=== PATIENT | female | born 2000 | race Caucasian/White ===

== ENCOUNTER 2020-02-10 22:03 | Emergency (ER) | payer BC ==
[2020-02-10] MEDS ORDERED: HYDROmorphone 0.5 MG/0.5 ML Syringe IM ONE (22:44)
--- NOTE | 2020-02-10 22:57 | EDM.PDOC ---
ED HPI GENERAL MEDICAL PROBLEM - General Chief Complaint: Back Pain or Injury Stated Complaint: LOW BACK PAIN Time Seen by Provider: 02/10/20 22:30 Source of Information: Reports: Patient, Family, RN, RN Notes Reviewed History Limitations: Reports: No Limitations - History of Present Illness INITIAL COMMENTS - FREE TEXT/NARRATIVE: Patient with severe back pain predominantly on the right that started about 2 hours ago. She rates this at an 8 to a 10. She has had a similar pain in the past couple of months ago. She was not treated or seen for this condition. Tonight the pain is unbearable. She does not have any pain with urination, pelvic pain, urgency or frequency. Patient has experienced nausea due to the pain she has not vomited. She has taken 2 Tylenol for the pain and it has not helped. Onset: Today, Sudden Onset Date: 02/10/20 Onset Time: 20:15 Duration: Hour(s):, Getting Worse Location: Reports: Back (Low back) Quality: Reports: Sharp Severity: Severe Improves with: Reports: None Context: Reports: Other (Onset) Associated Symptoms: Reports: Diaphoresis, Nausea/Vomiting Treatments SOUND MIXER: Reports: Acetaminophen Lower Back Pain Score (Numeric/FACES): 10 - Related Data Allergies Allergy/AdvReac Type Severity Reaction Status Date / Time No Known Allergies Allergy Verified 02/10/20 22:17 Home Meds: Home Meds norgestimate-ethinyl estradioL [Zzq-Ie-Hlfwnvka Tablet] 1 tab PO DAILY 02/10/20 [History] Past Medical History - Past Surgical History Dermatological Surgical History: Reports: Plastic Surgical R econstruction/Repair, Skin Graft Social & Family History - Tobacco Use Smoking Status *Q: Never Smoker - Recreational Drug Use Recreational Drug Use: No ED ROS GENERAL - Review of Systems Review Of Systems: See Below Constitutional: Reports: No Symptoms HEENT: Reports: No Symptoms Respiratory: Denies: Shortness of Breath, Cough Cardiovascular: Denies: Chest Pain, Blood Pressure Problem, Lightheadedness, Palpitations Endocrine: Reports: No Symptoms GI/Abdominal: Reports: Nausea. Denies: Abdominal Pain, Constipation, Diarrhea, Difficulty Swallowing, Flatus, Vomiting : Reports: Pain (Back pain predominantly on the right side in the region of the kidney.) Musculoskeletal: Reports: Back Pain (Low back). Denies: Muscle Pain, Muscle Stiffness Neurological: Denies: Confusion, Dizziness, Headache, Numbness, Weakness Psychiatric: Reports: No Symptoms Hematologic/Lymphatic: Reports: No Symptoms Immunologic: Reports: No Symptoms ED EXAM,LOWER BACK PAIN/INJURY - Physical Exam Exam: See Below Exam Limited By: No Limitations General Appearance: Alert, WD/WN, No Apparent Distress Neck: Normal Inspection, Supple, Non-Tender, Full Range of Motion Respiratory/Chest: No Respiratory Distress, Lungs Clear, Normal Breath Sounds, No Accessory Muscle Use, Chest Non-Tender Cardiovascular: Normal Peripheral Pulses, Regular Rate, Rhythm, No Edema, No Gallop, No JVD, No Murmur, No Rub GI/Abdominal: Normal Bowel Sounds, Soft, Non-Tender, No Organomegaly, No Distention, No Abnormal Bruit, No Mass, Pelvis Stable. No: Guarding, Rebound, Tender, Hepatomegaly, Splenomegaly Back Exam: Normal Inspection, Full Range of Motion, CVA Tenderness (R) (He had tenderness greater on the right), CVA Tenderness (L). No: Muscle Spasm Extremities: Normal Inspection, Normal Range of Motion, Non-Tender, No Pedal Edema, Normal Capillary Refill Neurological: Alert, Normal Mood/Affect, Normal Dorsiflexion, CN II-XII Intact, Normal Plantar Flexion, Normal Gait, Normal Reflexes, No Motor/Sensory Deficits, Oriented x 3 Psychiatric: Normal Affect, Normal Mood Skin Exam: Warm, Dry, Intact, Normal Color, No Rash Lymphatic: No Adenopathy Course - Vital Signs Last Recorded V/S: Last Vital Signs Temp 36.1 C 02/10/20 22:18 Pulse 68 02/10/20 22:18 Resp 16 02/10/20 22:18 BP 155/92 H 02/10/20 22:18 Pulse Ox 100 02/10/20 22:18 - Orders/Labs/Meds Labs: Laboratory Tests 02/10/20 02/10/20 Range/Units 22:24 22:50 Urine Color Yellow (YELLOW) Urine Appearance Clear (CLEAR) Urine pH 7.0 (5.0-8.0) Ur Specific Stephens 1.020 (1.008-1.030) Urine Protein Negative (NEGATIVE) mg/dL Urine Glucose (UA) Negative (NEGATIVE) mg/dL Urine Ketones Negative (NEGATIVE) mg/dL Urine Occult Blood Trace-lysed H (NEGATIVE) Urine Nitrite Negative (NEGATIVE) Urine Bilirubin Negative (NEGATIVE) Urine Urobilinogen 0.2 (0.2-1.0) EU/dL Ur Leukocyte Esterase Negative (NEGATIVE) Urine RBC 0-5 (0-5) Urine WBC 0-5 (0-5) Ur Epithelial Cells Rare Amorphous Sediment Not seen Urine Bacteria Rare Urine Mucus Not seen Urine HCG, Qual Negative UA negative for infection question trauma secondary to occult blood. Meds: Medications Discontinued Medications Generic Name Dose Route Start Last Admin Trade Name Shawn PRN Reason Stop Dose Admin Ketorolac Tromethamine 60 mg 02/10/20 23:05 02/10/20 23:11 Toradol IM 02/10/20 23:06 60 mg ONETIME ONE Administration - Radiology Interpretation Free Text/Narrative:: CT preliminary read - no evidence of kidney stones will wait for radiologist read Per radiologist read CT scant abd pelvis - pt with moderate amount of stool may represent chronic constipation Appendix upper limits of normal in size, no thickening or surrounding inflammatory changes. Pt does have an punctate gallstone. - Re-Assessments/Exams Free Text/Narrative Re-Assessment/Exam: 02/11/20 00:03 Pt states tramadol injection helped the pain somewhat but she states she is still quite uncomfortable. Rating a pain at a 4-5 post injection. Pt was notified of her CT results. After lengthy discussion patient chose to go home and try a colonoscopy prep vs having an enema to evacuate the stool in her colon. Departure - Departure Time of Disposition: 12:23 Disposition: Home, Self-Care 01 Condition: Fair Clinical Impression: Constipation - Discharge Information *PRESCRIPTION DRUG MONITORING PROGRAM REVIEWED*: No *COPY OF PRESCRIPTION DRUG MONITORING REPORT IN PATIENT JOANA: No Instructions: Chronic Constipation Referrals: Champ Lara MD [Primary Care Provider] - Forms: ED Department Discharge Additional Instructions: Follow colonoscopy procedure provided to evacuate bowel of large amounts of stool. If pain returns return to clinic or ER for additional evaluation. Increase fiber in diet to produce regular bowel movements. Sepsis Event Note (ED) - Evaluation Sepsis Screening Result: No Definite Risk - Focused Exam Vital Signs: Vital Signs Temp Pulse Resp BP Pulse Ox 02/10/20 22:18 36.1 C 68 16 155/92 H 100 02/10/20 22:12 36.1 C 68 16 155/92 H 100 - Assessment/Plan Assessment:: Chronic constipation Plan: Colonoscopy prep to evacuate bowel
[2020-02-10] MEDS ORDERED: Ketorolac 60 MG/2 ML SDV IM ONE (23:05)
--- NOTE | 2020-02-10 23:42 | CRLCT ---
INDICATION: Back abdominal pain greater on the right TECHNIQUE: CT Abdomen and pelvis without i.v. contrast. Coronal and sagittal reformats were obtained. COMPARISON: None FINDINGS: Lower chest: Unremarkable. Liver: Unremarkable. Spleen: Unremarkable. Pancreas: Unremarkable. Gallbladder: A punctate calcified gallstone is noted. Kidney: Unremarkable. No kidney or ureteral stones or obstruction seen. Adrenal: Unremarkable. Bowel: Moderate amount of stool is present throughout the colon which may be due to chronic constipation. The appendix is at the upper limits of normal in size, measuring 6-7 mm in diameter without wall thickening or surrounding inflammatory changes. Vascular: Unremarkable. Lymph: Unremarkable. Peritoneum: Unremarkable. No pneumoperitoneum is seen. No significant ascites is noted. Pelvis: Unremarkable. Soft tissue: Unremarkable. Bone: Unremarkable for age. IMPRESSION: 1. The appendix is at the upper limits of normal in size, measuring 6-7 mm in diameter without wall thickening or surrounding inflammatory changes. This is indeterminate by imaging and clinical followup is recommended. Dictated by Michael Araujo MD @ 02/10/2020 11:30:19 PM Please note that all CT scans at this facility use dose modulation, iterative reconstruction, and/or weight-based dosing when appropriate to reduce radiation dose to as low as reasonably achievable. Dictated by: Michael Araujo MD @ 02/10/2020 23:41:41 (Electronically Signed)
== END 2020-02-11 00:23 | disposition home or self-care (01) ==
LOC: JP.ED 22:03
DX: K59.00 Constipation, unspecified (principal); R11.2 Nausea with vomiting, unspecified; R61 Generalized hyperhidrosis; M54.5 Low back pain
CPT/HCPCS: 74176; 81001; 81025; 96372; 99284; J1885